=== PATIENT | male | born 1955 | race Caucasian/White ===

== ENCOUNTER → 2024-10-30 15:43 | Outpatient (REF) | payer MEDICARE, OTHER, SELFPAY ==
[2024-10-30 17:05] LABS: % Basophils 0.6 % (0-2); % Eosinophils 2.9 % (0-6); % Immature Granulocytes 0.4 % (0-0.5); % Lymphocytes 43.2 % (20.5-51.1); % Monocytes 11.4 % (1.7-9.3); % Neutrophils 41.5 % (42.2-75.2); Absolute Basophils 0.1 10^3/uL (0-0.2); Absolute Eosinophils 0.2 10^3/uL (0-0.7); Absolute Lymphocytes 3.4 10^3/uL (1.2-3.4); Absolute Monocytes 0.9 10^3/uL (0.1-0.6); Absolute Neutrophils 3.3 10^3/uL (1.4-6.5); Hematocrit 36.3 % (39.0-52.0); Hemoglobin 12.6 g/dL (13.0-18.0); Mean Corp Hgb Conc. 34.7 g/dL (33.0-37.0); Mean Corpuscular Hgb 32.5 pg (27.0-31.0); Mean Corpuscular Volume 93.6 fL (80.0-94.0); Mean Platelet Volume 9.1 fL (7.4-10.4); Nucleated Red Blood Cells % 0 % (-); Platelet Count 270 10^3/uL (130-400); Red Blood Cell Count 3.88 10^6/uL (4.70-6.10); Red Cell Dist. Width 12.4 % (11.5-14.5)
[2024-10-30 18:30] LABS: Erythrocyte Sed Rate 20 mm/hour (0-20)
== END ==
LOC: REG 15:43
PROVIDERS: ATTENDING PHYSICIAN Physician Assistant Surgical; FAMILY PHYSICIAN Family Medicine
DX: Z96.651 Presence of right artificial knee joint (principal)
CPT/HCPCS: 36415; 85025; 85652; 86140

== ENCOUNTER → 2024-11-03 10:37 | Outpatient (REF) | payer MEDICARE, OTHER, SELFPAY | LOC: RAD 10:37 | PROVIDERS: ATTENDING PHYSICIAN Physician Assistant Surgical; FAMILY PHYSICIAN Family Medicine; OTHER PHYSICIAN Specialist | DX: Z96.651 Presence of right artificial knee joint (principal) | CPT/HCPCS: 78315; A9503 ==

== ENCOUNTER 2025-02-19 09:05 | Inpatient (IN) | payer MEDICARE, OTHER, SELFPAY ==
--- NOTE | 2025-01-25 15:03 | CM ---
Addendum entered by Mary Ann Grayson RN 01/25/25 15:25:
CM spoke with patient via phone. Patient confirmed demographics. Patient lives independently with . Patient is denied history of VN or SNF> CM encourage patient to confirm what DME he has in his home. Patient stated he would look for his walker.
Patient is active with his PCP. Patient plans to use [facility] for medication services.
Patient will use [facility]. CM encouraged patient to make an appointment for 02/21.
PLAN: home with outpatient PT.
Original Note:
CM reviewed medical records. CM left message to discuss discharge planning. CM will remain available as needed.
PLAN: Home with Outpatient PT.
[2025-01-30 14:10] VITALS: BMI 28.0
[2025-01-30 14:11] LABS: Hematocrit 36.6 % (39.0-52.0); Hemoglobin 13.0 g/dL (13.0-18.0); Mean Corp Hgb Conc. 35.5 g/dL (33.0-37.0); Mean Corpuscular Volume 91.5 fL (80.0-94.0); Platelet Count 250 10^3/uL (130-400); Red Cell Dist. Width 12.2 % (11.5-14.5)
[2025-01-30 14:36] LABS: Glycohemoglobin (HgbA1c) 6.1 % (4.0-5.6)
[2025-01-30 14:46] LABS: ALT (SGPT) 26 U/L (0-50); AST (SGOT) 24 U/L (17-59); Albumin 4.6 g/dl (3.5-5.0); Alkaline Phosphatase 41 U/L (38-126); Blood Urea Nitrogen 18 mg/dl (9-20); Calcium 9.4 mg/dl (8.4-10.2); Carbon Dioxide 24 mmol/L (22-30); Chloride 107 mmol/L (98-107); Estimated Creatinine Clearance 86 ml/min; Glucose 95 mg/dl (70-99); Potassium 4.4 mmol/L (3.5-5.1); Sodium 138 mmol/L (135-145); Total Protein 7.6 g/dl (6.3-8.2); eGFR > 60.00
[2025-02-19] VITALS (14 sets, daily range): BP systolic 92–140; BP diastolic 54–84; PULSE 61; O2SAT 98; BMI 28.0
[2025-02-19] MEDS: NORMOSOL-R/PLASMALYTE-A 1000 IV ×2 (09:27→17:14)
[2025-02-19] MEDS: CELEBREX 200 MG PO (09:32)
[2025-02-19] MEDS: TYLENOL 650 MG PO ×4 (09:33→23:49)
--- NOTE | 2025-02-19 14:09 | W.PN.UPDATE ---
Update Note
Progress Note Update
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
- EARLY DISCHARGE
GERD and peptic ulcer per records - add PPI
- Minimize NSAIDs/Celebrex post-surgery as able
OA, status post R TKA, 04/2019, and L TKA, 08/2021, by Dr Martinez
HLD
Sinus bradycardia, asymptomatic
Nephrolithiasis
Prediabetes, A1c 6.1
[2025-02-19] MEDS: ZOFRAN 4 MG IV (14:19)
[2025-02-19] MEDS: ROXICODONE 5 MG PO (15:03)
[2025-02-19] MEDS: ANCEF 5 IV (17:13)
[2025-02-19] MEDS: PROTONIX 40 MG PO (17:13)
[2025-02-19] MEDS: ASPIRIN 325 MG PO (17:13)
[2025-02-19] MEDS: ROXICODONE 10 MG PO ×2 (18:10→22:20)
[2025-02-19] MEDS: BACTROBAN 2% OINTMENT 1 APPLIC NASAL (19:24)
[2025-02-19] MEDS: SENOKOT 17.2 MG PO (19:24)
[2025-02-19] MEDS: COLACE 100 MG PO (19:24)
[2025-02-19] MEDS: DECADRON 4 MG PO (19:24)
[2025-02-19] MEDS: DILAUDID 0.5 MG IV (19:25)
[2025-02-19] MEDS: NEURONTIN 300 MG PO (21:50)
[2025-02-20 03:05] VITALS: BP 119/63
[2025-02-20] MEDS: TYLENOL 650 MG PO ×2 (03:15→08:26)
[2025-02-20] MEDS: ANCEF 5 IV (03:15)
[2025-02-20] MEDS: ROXICODONE 5 MG PO ×2 (05:57→08:37)
[2025-02-20 07:45] VITALS: BP 118/71
[2025-02-20 08:19] VITALS: BP 124/80; BP 141/78; PULSE 83; O2SAT 95
[2025-02-20] MEDS: PROTONIX 40 MG PO (08:26)
[2025-02-20] MEDS: SENOKOT 17.2 MG PO (08:26)
[2025-02-20] MEDS: DECADRON 4 MG PO (08:26)
[2025-02-20] MEDS: COLACE 100 MG PO (08:27)
[2025-02-20] MEDS: ASPIRIN 325 MG PO (08:27)
[2025-02-20] MEDS: BACTROBAN 2% OINTMENT 1 APPLIC NASAL (08:27)
--- NOTE | 2025-02-20 08:42 | CM ---
Cm met with patient in room. Confirmed outpatient appointments.
PLAn: home with outpatient PT.
--- NOTE | 2025-02-20 10:00 | W.PN.ORTHO ---
Today's Communication / Plan
-
D/c today since clinically stable, did well w/ OT and PT.
Assessment
.
Distal Motor Intact: Yes
Dressing:
Scant areas of old incisional bleeding.
Assessment:
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
- EARLY DISCHARGE
DVT prophylaxis - Enteric coated ASA, b/l venous foot pumps
GERD and peptic ulcer per records - add PPI
- Clarified w/ patient: ulcer occurred in 2019 in the setting of excessive Advil use for COVID-19 related symptoms
- Pt did ask about Meloxicam post-procedure. Reports 'I have at least 40 tablets at home'. Did advise he could use this sparingly for breakthrough pain as needed. Did advise he take with food and take daily Protonix while on this to prevent ulcers.
Pt expressed understanding
OA, status post R TKA, 04/2019, and L TKA, 08/2021, by Dr Martinez
HLD
Sinus bradycardia, asymptomatic
Nephrolithiasis
Prediabetes, A1c 6.1
Plan
.
Surgery / Date: Revision of R TKA w/ Dr Martinez 02/19/25
DVT Prophylaxis: Aspirin
Activity:
Out of bed.
PT/OT
Discharge Plan: Home w/ Outpatient PT
Subjective
.
.:
Patient resting comfortably in his chair.
Did report pain after OT session this AM - was medicated w/ additional 5 mg Oxycodone dose.
Denies any other acute complaints. Generally feels well.
Eager for d/c today.
Vital Signs and Labs
.
Vital Signs and Labs:
Lab Results
01/30/25 12:54
01/30/25 12:54
Temp Pulse Resp BP Pulse Ox
99.0 F 77 18 118/71 94
02/20/25 07:45 02/20/25 07:45 02/20/25 07:45 02/20/25 07:45 02/20/25 07:45
Non-invasive Hgb result: 13.2
Physical Exam
-
HEENT: No pallor, cyanosis, or jaundice. Throat clear.
NECK: Supple. No JVD.
RESPIRATORY: Lungs clear to auscultation.
CVS: S1, S2 normal. RRR.�
ABDOMEN: Soft, non-tender. No distension.
EXTREMITIES: Expected post-surgical R knee edema. Strength equal, no calf pain with palpation/dorsiflexion. Calves soft.
MOTORCYCLE DELIVERER: AOx3. No focal deficits. customer relationship specialist grossly intact
--- NOTE | 2025-02-20 10:15 | W.DS.TRANS ---
DC Summary - Rn Triage
-
Discharge Instructions:
Sleep Apnea Risk Intermediate
Discharge Diagnosis/Procedures Mechanical failure of R TKA s/p Revision of R
TKA w/ Dr Martinez 02/19/25
Diet Regular
Additional Diets Adequate hydration, minimize opioids, and wear
TEDs stockings to prevent low blood pressure/
dizziness.
Activity As tolerated,With Walker
Driving Restrictions Not until seen by your Dr
Bathing Restrictions OK to Shower
Other Services PT
Wound Care Dressing to be removed 1 week post-surgery.
Jovanni to be removed at 2 week follow-up with
surgeon's office.
Instructions:
Stand-Alone Forms: Total Hip/Knee Replacement D/C
Changes to Home Medications: Yes
Discharge Medications:
DC Medications w/original date entered in [facility]
cetirizine 10 mg tablet (Zyrtec) 10 mg PO DAILY PRN Sneezing 01/29/25
mupirocin 2 % topical ointment 1 applic intranasal BID #1 tube 01/30/25
acetaminophen 500 mg tablet 1,000 mg (2 x 500 mg) PO Q6H pain #60 tabs 02/20/25
aspirin 325 mg tablet,delayed release (Ecotrin) 325 mg PO DAILY #30 tabs 02/20/25
dexamethasone 4 mg tablet 4 mg PO BID Anti-inflammatory #5 tabs 02/20/25
docusate sodium 100 mg capsule 100 mg PO BID #30 caps 02/20/25
gabapentin 300 mg capsule 300 mg PO HS neuropathic pain/sleep #10 caps 02/20/25
meloxicam 15 mg tablet 15 mg PO DAILY breakthrough pain #14 tabs 02/20/25
ondansetron HCl 4 mg tablet 4 mg PO Q6H PRN nausea and vomiting #30 tabs 02/20/25
oxycodone 5 mg tablet 5 - 10 mg (1 - 2 x 5 mg) PO Q6H PRN moderate-severe pain #35 tabs 02/20/25
pantoprazole 40 mg tablet,delayed release 40 mg PO DAILY #30 tabs 02/20/25
sennosides 8.6 mg tablet (Emily-duglas) 17.2 mg (2 x 8.6 mg) PO BID #30 tabs 02/20/25
Home Medication Changes
acetaminophen 500 mg tablet 1,000 mg (2 x 500 mg) PO Q6H pain #60 tabs 02/20/25
aspirin 325 mg tablet,delayed release (Ecotrin) 325 mg PO DAILY #30 tabs 02/20/25
dexamethasone 4 mg tablet 4 mg PO BID Anti-inflammatory #5 tabs 02/20/25
docusate sodium 100 mg capsule 100 mg PO BID #30 caps 02/20/25
gabapentin 300 mg capsule 300 mg PO HS neuropathic pain/sleep #10 caps 02/20/25
meloxicam 15 mg tablet 15 mg PO DAILY breakthrough pain #14 tabs 02/20/25
ondansetron HCl 4 mg tablet 4 mg PO Q6H PRN nausea and vomiting #30 tabs 02/20/25
oxycodone 5 mg tablet 5 - 10 mg (1 - 2 x 5 mg) PO Q6H PRN moderate-severe pain #35 tabs 02/20/25
pantoprazole 40 mg tablet,delayed release 40 mg PO DAILY #30 tabs 02/20/25
sennosides 8.6 mg tablet (Emily-duglas) 17.2 mg (2 x 8.6 mg) PO BID #30 tabs 02/20/25
Pending Results: No
[2025-02-20 10:47] VITALS: BP 118/64
== END 2025-02-20 12:41 | disposition home or self-care (01) | DRG 468 ==
LOC: 2 SOUTH 09:05
PROVIDERS: ADMITTING PHYSICIAN Specialist; FAMILY PHYSICIAN Family Medicine
PROC: 0SPC0LZ Removal of Medial Unicondylar Synthetic Substitute from Right Knee Joint, Open Approach (ICD-10-PCS; 2025-02-19)
PROC: 0SRC0L9 Replacement of Right Knee Joint with Medial Unicondylar Synthetic Substitute, Cemented, Open Approach (ICD-10-PCS; 2025-02-19)
DX: T84.092A Other mechanical complication of internal right knee prosthesis, initial encounter (principal); Y79.2 Prosthetic and other implants, materials and accessory orthopedic devices associated with adverse incidents; K21.9 Gastro-esophageal reflux disease without esophagitis; E78.5 Hyperlipidemia, unspecified; R73.03 Prediabetes; Z87.11 Personal history of peptic ulcer disease; Z96.652 Presence of left artificial knee joint
CPT/HCPCS: 36415; 73560; 80053; 83036; 85027; 86850; 86900; 86901; 87070; 93005; 97116; 97162; 97166; 97535; C1713; C1762; C1776